=== PATIENT | female | born 1980 | race African-American/Black ===

== ENCOUNTER 2016-07-13 09:48 | Emergency (ER) | payer BC | END 2016-07-13 09:59 | disposition home or self-care (01) | LOC: ER 09:48 | DX: M54.2 Cervicalgia (principal); I10 Essential (primary) hypertension; Z88.5 Allergy status to narcotic agent; Z88.1 Allergy status to other antibiotic agents; V89.2XXA Person injured in unspecified motor-vehicle accident, traffic, initial encounter | CPT/HCPCS: 72040; 99284 ==